=== PATIENT | female | born 1985 | race Caucasian/White ===

== ENCOUNTER 2017-11-29 15:55 | Emergency (ER) | payer SELFPAY ==
[2017-11-29 15:56] VITALS: BMI 46.5
[2017-11-29 16:02] VITALS: TEMP 98.4
--- NOTE | 2017-11-29 16:26 | C.PDOC ---
History Of Present Illness Patient is a 32 y/o female who presents to the ED with a complaint of abdominal cramping for the last 2 weeks. Patient notes positive test taken at home; denies any vaginal bleeding or discharge. Patient has 4 children at bedside. No other physical complaints at this time. Time Seen by Provider: 11/29/17 16:06 Chief Complaint (Nursing): Abdominal Pain History Per: Patient History/Exam Limitations: no limitations Onset/Duration Of Symptoms: Days (2 weeks) Current Symptoms Are (Timing): Still Present Quality Of Discomfort: Cramping Associated Symptoms: denies: Urinary Symptoms (negative vaginal bleeding) Recent travel outside of the [place]: No Past Medical History Reviewed: Historical Data, Nursing Documentation, Vital Signs Vital Signs: Last Vital Signs Temp 98.4 F 11/29/17 16:00 Pulse 68 11/29/17 16:00 Resp 18 11/29/17 16:00 BP 114/75 11/29/17 16:00 Pulse Ox 100 11/29/17 17:52 - Medical History PMH: No Chronic Diseases Surgical History: No Surg Hx - [facility] Procedures ARTIF RUPT MEMBRANES NEC (08/19/14) DELIVERY OF PRODUCTS OF CONCEPTION, EXTERNAL APPROACH (07/31/15) MANUAL ASSIST DELIV NEC (08/19/14) REPAIR FEMALE PERINEUM, EXTERNAL APPROACH (07/31/15) REPAIR OB LACERATION NEC (08/19/14) Family History: States: No Known Family Hx - Social History Hx Tobacco Use: No Hx Alcohol Use: No Hx Substance Use: No - Immunization History Hx Tetanus Toxoid Vaccination: No Hx Influenza Vaccination: No Hx Pneumococcal Vaccination: No Review Of Systems Gastrointestinal: Positive for: Abdominal Pain (cramping) Genitourinary: Negative for: Vaginal Discharge, Vaginal Bleeding Physical Exam - Physical Exam Appears: Well, Non-toxic, No Acute Distress Skin: Normal Color, Warm, Dry Head: Atraumatic, Normacephalic Oral Mucosa: Moist Chest: Symmetrical Cardiovascular: Rhythm Regular, No Murmur Respiratory: Normal Breath Sounds, No Rales, No Rhonchi, No Wheezing Gastrointestinal/Abdominal: Soft, No Tenderness, No Guarding, No Rebound Neurological/Psych: Oriented x3, Normal Speech, Normal Cognition ED Course And Treatment - Laboratory Results Result Diagrams: 11/29/17 16:26 11/29/17 16:26 O2 Sat by Pulse Oximetry: 100 Progress Note: Transvaginal US ordered. Disposition - Disposition Disposition Time: 19:00 Condition: STABLE Forms: [facility] (Guinean) - Clinical Impression Clinical Impression: Miscarriage, threatened, early - Scribe Statement The provider has reviewed the documentation as recorded by the Scribe (Oswald Wang) Celeste Mendez All medical record entries made by the Scribe were at my direction and personally dictated by me. I have reviewed the chart and agree that the record accurately reflects my personal performance of the history, physical exam, medical decision making, and the department course for this patient. I have also personally directed, reviewed, and agree with the discharge instructions and disposition. Physician Patient Turnover Patient Signed Over To: Cindy Reddy Handoff Comments: CARINE WHITE, DENICEO
[2017-11-29 16:29] LABS: BASO # 0.1 K/uL (0.0-0.2); BASO % 0.5 % (0.0-2.0); EOS # 0.1 K/uL (0.0-0.7); EOS % 1.1 % (0.0-4.0); HEMOGLOBIN 12.6 g/dL (11.0-16.0); LYMPH # 2.8 K/uL (1.0-4.3); LYMPH % 26.2 % (20.0-40.0); MEAN CORPUSCULAR HEMOGLOBIN 26.8 pg (27.0-31.0); MEAN CORPUSCULAR HGB CONC 33.1 g/dL (33.0-37.0); MEAN PLATELET VOLUME 8.5 fL (7.2-11.7); MONO # 0.7 K/uL (0.0-0.8); MONO % 6.2 % (0.0-10.0); NEUT # 7.2 K/uL (1.8-7.0); NRBC % 0.1 % (0.0-2.0); RBC 4.7 Mil/uL (3.80-5.20); RED CELL DISTRIBUTION WIDTH 13.8 % (11.5-14.5); WHITE BLOOD COUNT 10.9 K/uL (4.8-10.8)
[2017-11-29 16:30] LABS: MEAN CELL VOLUME 81.1 fL (81.0-99.0)
[2017-11-29 16:40] LABS: SQUAMOUS EPITHIAL 11 /hpf (0-5); URINE BILIRUBIN NEGATIVE (NEGATIVE); URINE BLOOD 2+ (NEGATIVE); URINE CLARITY Hazy (Clear); URINE COLOR Yellow (YELLOW); URINE GLUCOSE (UA) NORMAL (Normal); URINE LEUKOCYTE ESTERASE TRACE Leu/uL (Negative); URINE PROTEIN NEGATIVE (NEGATIVE)
[2017-11-29 16:41] LABS: ALT/SGPT 42 U/L (9-52); AST/SGOT 27 U/L (14-36); BLOOD UREA NITROGEN 10 mg/dL (7-17); CALCIUM 8.7 mg/dl (8.6-10.4); GFR AFRICAN-AMERICAN > 60; GFR NON-AFRICAN AMERICAN > 60
[2017-11-29 21:24] VITALS: BP 118/70; PULSE 78; RESP 20; O2SAT 98
--- NOTE | 2017-11-30 14:57 | US ---
PROCEDURE: Pelvic ultrasound dated 11/29/2017 HISTORY: Abdominal pain rule out ectopic . COMPARISON: No prior study available for comparison TECHNIQUE: Transabdominal and transvaginal sonographic evaluation of the pelvis performed. FINDINGS: The uterus is anteverted measuring approximately 11.0 x 6.4 x 6.6 cm. Cervix is closed measuring 3.2 cm. There is a living intrauterine gestation with measurements as follows: Gestational sac: MSD = 2.93 cm = 7 weeks 6 days Yolk sac: 3.4 mm pole: CRL = 6.9 mm = 5 weeks 4 days Heart motion: 139 BPM Average ultrasound age: 7 weeks 2 days 0 weeks 4 days NICK based on average ultrasound age is 07/16/2018 LMP = 10/08/2017 There is a small subchorionic hemorrhage which measures approximate 1.9 x 0.9 x 1.6 cm Right ovary measures approximately 2.7 x 2.1 x 2.8 cm right ovary exhibits arterial flow. There is a right ovarian cyst measuring 1.4 x 1.4 x 1.5 cm Left ovary measures approximately 5.5 x 4.3 x 5.0 cm. Left ovary exhibits arterial flow. There is a left ovarian cyst that measures approximately 3.5 x 3.6 x 4.0 cm. Free fluid is present in the cul de sac. IMPRESSION: Single living intrauterine gestation estimated at approximately 7 weeks 2 days 0 weeks 4 days. Heart rate document at 1:39 BPM. Additional measurements as above There is a small subchorionic hemorrhage present. Small amount of free fluid present within the cul de sac. Preliminary report provided by overnight radiology service
== END 2017-11-29 22:25 | disposition home or self-care (01) ==
LOC: C.ER 15:55
DX: O20.0 Threatened abortion (principal); Z3A.01 Less than 8 weeks gestation of pregnancy

== ENCOUNTER 2018-01-25 17:45 | Emergency (ER) | payer OTHER ==
[2018-01-25] MEDS ORDERED: Morphine 4 MG/ML VIAL ONE (18:08)
[2018-01-25 18:18] LABS: BASO % 0.3 % (0.0-2.0); EOS # 0.1 K/uL (0.0-0.7); EOS % 0.5 % (0.0-4.0); HEMOGLOBIN 12.3 g/dL (11.0-16.0); LYMPH # 2.1 K/uL (1.0-4.3); LYMPH % 17.1 % (20.0-40.0); MEAN CELL VOLUME 80.3 fL (81.0-99.0); MEAN CORPUSCULAR HEMOGLOBIN 26.9 pg (27.0-31.0); MEAN CORPUSCULAR HGB CONC 33.6 g/dL (33.0-37.0); MEAN PLATELET VOLUME 8.8 fL (7.2-11.7); MONO # 0.6 K/uL (0.0-0.8); MONO % 4.9 % (0.0-10.0); NEUT # 9.7 K/uL (1.8-7.0); NEUT % 77.2 % (50.0-75.0); RBC 4.56 Mil/uL (3.80-5.20); WHITE BLOOD COUNT 12.6 K/uL (4.8-10.8)
--- NOTE | 2018-01-25 18:27 | C.PDOC ---
History Of Present Illness 33 y/o female with PMHX of periumbilical hernia 2 years ago presents to ED for complaints of periumbilical pain associated with nausea and vomiting that began this morning. Patient is 3 months . Patient also reports that she is fasting for Ramadan. Time Seen by Provider: 01/25/18 17:50 Chief Complaint (Nursing): Abdominal Pain History Per: Patient History/Exam Limitations: no limitations Onset/Duration Of Symptoms: Hrs Current Symptoms Are (Timing): Still Present Location Of Pain/Discomfort: Periumbilical Radiation Of Pain To:: None Quality Of Discomfort: "Pain" Associated Symptoms: Nausea, Vomiting. denies: Fever, Chills, Diarrhea, Urinary Symptoms Exacerbating Factors: None Alleviating Factors: None Last Bowel Movement: Today Recent travel outside of the [place]: No Abnormal Vaginal Bleeding: No Past Medical History Reviewed: Historical Data, Nursing Documentation, Vital Signs Vital Signs: Last Vital Signs Temp 98.6 F 01/25/18 19:29 Pulse 74 01/25/18 19:29 Resp 16 01/25/18 19:29 BP 107/61 01/25/18 19:29 Pulse Ox 99 01/25/18 19:29 - Medical History PMH: No Chronic Diseases Surgical History: No Surg Hx Family History: States: No Known Family Hx - Social History Hx Alcohol Use: No Hx Substance Use: No - Immunization History Hx Tetanus Toxoid Vaccination: No Hx Influenza Vaccination: No Hx Pneumococcal Vaccination: No Review Of Systems Constitutional: Negative for: Fever, Chills Gastrointestinal: Positive for: Nausea, Vomiting, Abdominal Pain (periumbilical) . Negative for: Diarrhea, Constipation Skin: Negative for: Rash Neurological: Negative for: Weakness, Numbness Physical Exam - Physical Exam Appears: Non-toxic, No Acute Distress, Other (Obese) Skin: Normal Color, Warm, Dry Head: Atraumatic, Normacephalic Eye(s): bilateral: Normal Inspection, PERRL, EOMI Oral Mucosa: Moist Neck: Supple Chest: Symmetrical, No Tenderness Cardiovascular: Rhythm Regular, No Murmur Respiratory: Normal Breath Sounds, No Decreased Breath Sounds, No Rales, No Rhonchi, No Wheezing Gastrointestinal/Abdominal: Soft, Tenderness (exquisitely), Hernia (protruding paraumbilical hernia) Extremity: Normal ROM Neurological/Psych: Oriented x3, Normal Speech, Normal Cognition Gait: Steady ED Course And Treatment - Laboratory Results Result Diagrams: 01/25/18 18:13 01/25/18 18:13 O2 Sat by Pulse Oximetry: 100 (RA) Pulse Ox Interpretation: Normal Medical Decision Making Medical Decision Making: Ordered urinalysis and blood work. Administered Morphine and ER Ice pack. protruding umbilical hernia, now reduced by Dr. Boone with digital manipulation 3 months preg 6PM: -- Discussed with , surgery doctor. 6:20PM: -- Bedside digitally reduced hernia -- Patient tolerated procedure well Plan: -- 2 hour observation then discharge. On reevaluation patient had an ice pack placed over periumbilical area. Case was discussed with surgery environmental law professor and surgery residents who states patient is ok to be D/C. Nasogastric tube was removed and patient was D/C home. Umbilical hernia remains reduced on reevaluation prior to D/C. Disposition Doctor Will See Patient In The: Office Counseled Patient/Family Regarding: Studies Performed, Diagnosis - Disposition Referrals: Yonathan Boone MD [Staff Provider] - Disposition: HOME/ ROUTINE Disposition Time: 18:28 Condition: GOOD Additional Instructions: follow-up with Dr. Boone for elective repair of umbilical hernia. Instructions: Umbilical Hernia, Adult Forms: [facility] (Lao) - Clinical Impression Clinical Impression: Umbilical hernia - Scribe Statement The provider has reviewed the documentation as recorded by the Andreinaibjose Trent All medical record entries made by the Scribe were at my direction and personally dictated by me. I have reviewed the chart and agree that the record accurately reflects my personal performance of the history, physical exam, medical decision making, and the department course for this patient. I have also personally directed, reviewed, and agree with the discharge instructions and disposition.
[2018-01-25 18:31] LABS: ALB/GLOB RATIO 1.1 (1.0-2.1); ALBUMIN 3.9 g/dL (3.5-5.0); ALT/SGPT 31 U/L (9-52); AST/SGOT 25 U/L (14-36); BLOOD UREA NITROGEN 7 mg/dL (7-17); CALCIUM 9.1 mg/dl (8.6-10.4); GFR AFRICAN-AMERICAN > 60; GFR NON-AFRICAN AMERICAN > 60; LIPASE 42 U/L (23-300)
[2018-01-25 19:29] VITALS: BP 107/61; PULSE 74; TEMP 98.6
--- NOTE | 2018-01-25 20:03 | CP.PCM.CON ---
History of Present Illness - History of Present Illness History of Present Illness: Surgery- Dr. Boone CC: abd pain, umbilical hernia 33F currently 3 months w/ pmhx significant for umbilical hernia for > 2 years, presents to [facility] (formerly [facility]) with bo-umbilical pain around hernia site that started early this morning. Pain has been significant and intensified with no alleviating factors. Surgery was consulted for evaluation of the hernia. During encounter patient is Yi speaking. Initial HPI was provided ER attending at bedside. NGT was inserted with 50cc of gastric contents return. At bedside ice packs were placed and reduction of hernia was achieved. Associated nausea, vomiting. Denies fevers, chills, diarrhea, changes in urinary habits PMH: stated above PSH: Denies ALL: NKDA Socialhx: denies etoh, tobacco, recreational drug use FH: non-contributory 12 pt ROS conducted, negative otherwise noted above Review of Systems - Review of Systems All systems: reviewed and no additional remarkable complaints except - Constitutional Constitutional: As Per HPI Past Patient History - Past Social History Smoking Status: Never Smoked - PSYCHIATRIC Hx Substance Use: No - SURGICAL HISTORY Hx Surgeries: No - ANESTHESIA Hx Anesthesia: No Hx Anesthesia Reactions: No Meds Allergies/Adverse Reactions: Allergies Allergy/AdvReac Type Severity Reaction Status Date / Time No Known Allergies Allergy Unverified 01/25/18 17:52 Physical Exam - Constitutional Appears: Non-toxic, No Acute Distress - Head Exam Head Exam: ATRAUMATIC - Eye Exam Eye Exam: EOMI - ENT Exam ENT Exam: Mucous Membranes Moist - Respiratory Exam Respiratory Exam: Accessory Muscle Use, Respiratory Distress, NORMAL BREATHING PATTERN - Cardiovascular Exam Cardiovascular Exam: +S1, +S2. absent: Bradycardia, Tachycardia - GI/Abdominal Exam GI & Abdominal Exam: Guarding, Hernia, Soft, Tenderness. absent: Distended, Firm, Rebound, Rigid Additional comments: patient combative during abd exam. Hernia was able to reduce after ice packs and manipulation - Extremities Exam Extremities exam: Positive for: normal inspection. Negative for: calf tenderness - Neurological Exam Neurological exam: Alert, Oriented x3 - Psychiatric Exam Psychiatric exam: Normal Affect - Skin Skin Exam: Intact, Warm Results - Vital Signs Recent Vital Signs: Last Vital Signs Temp 98.6 F 01/25/18 19:29 Pulse 74 01/25/18 19:29 Resp 16 01/25/18 19:29 BP 107/61 01/25/18 19:29 Pulse Ox 99 01/25/18 19:29 - Labs Result Diagrams: 01/25/18 18:13 01/25/18 18:13 Labs: Laboratory Results - last 24 hr 01/25/18 01/25/18 01/25/18 18:13 18:13 18:13 WBC 12.6 H RBC 4.56 Hgb 12.3 Hct 36.6 MCV 80.3 L MCH 26.9 L MCHC 33.6 RDW 14.0 Plt Count 324 MPV 8.8 Neut % (Auto) 77.2 H Lymph % (Auto) 17.1 L Charlton % (Auto) 4.9 Eos % (Auto) 0.5 Baso % (Auto) 0.3 Neut # (Auto) 9.7 H Lymph # (Auto) 2.1 Charlton # (Auto) 0.6 Eos # (Auto) 0.1 Baso # (Auto) 0.0 Sodium 138 Potassium 3.8 Chloride 108 H Carbon Dioxide 18 L Anion Gap 17 BUN 7 Creatinine 0.5 L Est GFR ( Amer) > 60 Est GFR (Non-Af Amer) > 60 Random Glucose 121 H Calcium 9.1 Total Bilirubin 0.7 AST 25 ALT 31 Alkaline Phosphatase 87 Total Protein 7.7 Albumin 3.9 Globulin 3.8 Albumin/Globulin Ratio 1.1 Lipase 42 Beta HCG, Quant 43681.00 Assessment & Plan - Assessment and Plan (Free Text) Assessment: 33 w/ umbilical hernia, reduced at bedside Plan: - umbilical hernia reduced at bedside by Dr. Boone - pressure dressing applied - serial abd exams - pt abd is soft - cleared for diet - OK to D/C home and follow up as an outpatient w/ Dr. Boone in Clinic for elective repair - case discussed w/ [facility]one [facility] PGY1
[2018-01-25 20:24] VITALS: O2SAT 100
[2018-01-25 20:25] VITALS: RESP 18
== END 2018-01-25 20:17 | disposition home or self-care (01) ==
LOC: MERGE 17:45 → C.ER 17:45
DX: O26.891 Other specified pregnancy related conditions, first trimester (principal); K42.9 Umbilical hernia without obstruction or gangrene; Z3A.12 12 weeks gestation of pregnancy
CPT/HCPCS: 80053; 83690; 84702; 85025; 96374; 99285; J2270

== ENCOUNTER 2018-02-03 23:01 | Emergency (ER) | payer OTHER ==
[2018-02-03 23:01] VITALS: BMI 46.5
[2018-02-03 23:15] VITALS: BP 107/60; TEMP 98.5; O2SAT 99
[2018-02-03] MEDS ORDERED: Sodium Chloride 0.9% 1,000 ML IV ONE (23:59)
--- NOTE | 2018-02-03 23:59 | C.PDOC ---
History Of Present Illness Patient presents to the ER with a complaint of abdominal pain, associated with some nausea and vomiting. Patient notes she has a Hx of umbilical hernia and is 4 months . Denies fever or chills. Time Seen by Provider: 02/03/18 23:59 Chief Complaint (Nursing): Abdominal Pain History Per: Patient History/Exam Limitations: no limitations Onset/Duration Of Symptoms: Hrs Current Symptoms Are (Timing): Still Present Severity: Moderate Pain Scale Rating Of: 4 Location Of Pain/Discomfort: Other (Umbilical) Radiation Of Pain To:: None Quality Of Discomfort: Unable To Describe Associated Symptoms: Nausea, Vomiting. denies: Fever, Chills Exacerbating Factors: None Alleviating Factors: None Recent travel outside of the [place]: No Abnormal Vaginal Bleeding: No Past Medical History Reviewed: Historical Data, Nursing Documentation, Vital Signs Vital Signs: Last Vital Signs Temp 98.5 F 02/03/18 23:11 Pulse 66 02/04/18 04:01 Resp 18 02/04/18 04:01 BP 107/60 02/03/18 23:11 Pulse Ox 99 02/04/18 02:17 - [facility] Procedures ARTIF RUPT MEMBRANES NEC (08/19/14) DELIVERY OF PRODUCTS OF CONCEPTION, EXTERNAL APPROACH (07/31/15) MANUAL ASSIST DELIV NEC (08/19/14) REPAIR FEMALE PERINEUM, EXTERNAL APPROACH (07/31/15) REPAIR OB LACERATION NEC (08/19/14) Family History: States: No Known Family Hx - Social History Hx Tobacco Use: No Hx Alcohol Use: No Hx Substance Use: No - Immunization History Hx Tetanus Toxoid Vaccination: No Hx Influenza Vaccination: No Hx Pneumococcal Vaccination: No Review Of Systems Constitutional: Negative for: Fever, Chills Cardiovascular: Negative for: Chest Pain, Palpitations Respiratory: Negative for: Cough, Shortness of Breath Gastrointestinal: Positive for: Nausea, Vomiting, Abdominal Pain Genitourinary: Negative for: Vaginal Bleeding Physical Exam - Physical Exam Appears: Non-toxic Skin: Warm, Dry Head: Normacephalic Oral Mucosa: Moist Chest: Symmetrical, No Tenderness Cardiovascular: Rhythm Regular Respiratory: No Rales, No Rhonchi, No Wheezing Gastrointestinal/Abdominal: Soft, No Guarding, No Rebound, Hernia (Moderate size , tender to palpation), Other (Gravid) Neurological/Psych: Oriented x3 ED Course And Treatment - Laboratory Results Result Diagrams: 02/04/18 00:12 02/04/18 00:12 O2 Sat by Pulse Oximetry: 99 (room air) Pulse Ox Interpretation: Normal Progress Note: Blood work and urinalysis ordered. Morphine, zofran, and IV fluids administered. 2:16 AM umbilical hernia reduced. No more pain. Reevaluation Time: 04:33 Reassessment Condition: Improved Disposition Counseled Patient/Family Regarding: Studies Performed, Diagnosis, Need For Followup - Disposition Referrals: [facility] [Outside] [facility] [Outside] Ethan Dueñas MD [Staff Provider] - Disposition: HOME/ ROUTINE Disposition Time: 23:59 Condition: FAIR Instructions: Abdominal Hernia (DC), - The Fifth Month Forms: [employer] (Romanian) - Clinical Impression Clinical Impression: Abdominal pain, Umbilical hernia, - Scribe Statement The provider has reviewed the documentation as recorded by the Scribe Paddy Ritchie All medical record entries made by the Scribe were at my direction and personally dictated by me. I have reviewed the chart and agree that the record accurately reflects my personal performance of the history, physical exam, medical decision making, and the department course for this patient. I have also personally directed, reviewed, and agree with the discharge instructions and disposition.
[2018-02-04] MEDS ORDERED: Morphine 4 MG/ML VIAL ONE (00:21)
[2018-02-04 00:22] LABS: BASO % 0.2 % (0.0-2.0); EOS % 0.2 % (0.0-4.0); HEMOGLOBIN 12.5 g/dL (11.0-16.0); LYMPH # 1.3 K/uL (1.0-4.3); LYMPH % 10.1 % (20.0-40.0); MEAN CELL VOLUME 80.5 fL (81.0-99.0); MEAN CORPUSCULAR HGB CONC 33.5 g/dL (33.0-37.0); MEAN PLATELET VOLUME 9.2 fL (7.2-11.7); MONO # 0.3 K/uL (0.0-0.8); MONO % 2.6 % (0.0-10.0); NEUT % 86.9 % (50.0-75.0); RBC 4.64 Mil/uL (3.80-5.20); RED CELL DISTRIBUTION WIDTH 14.2 % (11.5-14.5); WHITE BLOOD COUNT 12.7 K/uL (4.8-10.8)
[2018-02-04 00:26] LABS: INR 1.1; PROTHROMBIN TIME 11.6 SECONDS (9.7-12.2)
[2018-02-04 00:40] LABS: ALB/GLOB RATIO 1.1 (1.0-2.1); ALBUMIN 4.3 g/dL (3.5-5.0); ALT/SGPT 13 U/L (9-52); AST/SGOT 15 U/L (14-36); BLOOD UREA NITROGEN 4 mg/dL (7-17); CALCIUM 9.2 mg/dl (8.6-10.4); GFR AFRICAN-AMERICAN > 60; GFR NON-AFRICAN AMERICAN > 60
[2018-02-04] MEDS ORDERED: Sodium Chloride 0.9% 1,000 ML IV ONE (02:17)
[2018-02-04 04:02] VITALS: PULSE 66; RESP 18
--- NOTE | 2018-02-04 04:12 | US ---
EXAM: US After First Trimester, Transabdominal CLINICAL HISTORY: 33 years old, female; Pain; complicated by abdominal or pelvic pain; Lower; Second trimester; Gestational age or lmp: 10/08/17; ; Additional info: Abd pain, hcg 50178, no pre care TECHNIQUE: Real-time transabdominal obstetrical ultrasound of the maternal pelvis and a second or third trimester with image documentation. COMPARISON: No relevant prior studies available. FINDINGS: Fetus: Single live intrauterine gestation. Heart rate: heart rate of 132 beats per minute. Presentation: Variable. Placenta: Posterior. No placenta previa or abruption. Amniotic fluid: Normal. Anatomy: No gross anomaly is appreciated. BIOMETRICS Gestational age: Estimated gestational age of 17 weeks 1 day by measurements. NICK: 07/14/2018 by ultrasound. EFW: Estimated weight of 177 g. BPD: 3.7 cm, correlating with 17 weeks 3 days. HC: 13.9 cm, correlating with 17 weeks 2 days. AC: 11.3 cm, correlating with 17 weeks 1 day. FL: 2.2 cm, correlating with 16 weeks 5 days. MATERNAL: Uterus: Unremarkable. No myometrial mass. Cervix: No cervical dilatation or effacement. Adnexa: RIGHT ovary: Not visualized. LEFT ovary: 2.9 x 2.5 x 2.2 cm simple cyst. Free fluid: No significant free fluid. IMPRESSION: 1. Single live intrauterine gestation. 2. Incidental/non-acute findings are described above.
== END 2018-02-04 05:33 | disposition home or self-care (01) ==
LOC: C.ER 23:01
DX: O26.892 Other specified pregnancy related conditions, second trimester (principal); Z3A.16 16 weeks gestation of pregnancy; K42.9 Umbilical hernia without obstruction or gangrene; R10.2 Pelvic and perineal pain
CPT/HCPCS: 76815; 80053; 84702; 85025; 85610; 85730; 86850; 86900; 96361; 96374; 96375; 99284; J2270; J2405; J7030

== ENCOUNTER 2018-02-08 21:37 | Emergency (ER) | payer OTHER ==
[2018-02-08 21:37] VITALS: BMI 46.5
[2018-02-08 21:45] VITALS: RESP 20; O2SAT 99
[2018-02-08] MEDS ORDERED: Morphine 4 MG/ML VIAL ONE (22:11)
[2018-02-08] MEDS ORDERED: Sodium Chloride 0.9% 1,000 ML ONE ×2 (22:12→23:14)
[2018-02-08] MEDS ORDERED: Sodium Chloride 0.9% 1,000 ML IV SCH (22:15)
[2018-02-08] MEDS ORDERED: Sodium Chloride 0.9% 1,000 ML IV ONE (22:17)
--- NOTE | 2018-02-08 22:22 | C.PDOC ---
History Of Present Illness 33 year old female with a Hx of umbilical hernia presents to the ER with a complaint of umbilical pain. Patient states the pain started tonight after protrusion of hernia. Denies nausea or vomiting. Chief Complaint (Nursing): Abdominal Pain History Per: Patient History/Exam Limitations: no limitations Onset/Duration Of Symptoms: Hrs, Sudden Onset Current Symptoms Are (Timing): Still Present Location Of Pain/Discomfort: Other (Umbilical) Radiation Of Pain To:: None Quality Of Discomfort: Unable To Describe Associated Symptoms: denies: Nausea, Vomiting Exacerbating Factors: None Alleviating Factors: None Recent travel outside of the [place]: No Abnormal Vaginal Bleeding: No Past Medical History Reviewed: Historical Data, Nursing Documentation, Vital Signs Vital Signs: Last Vital Signs Temp 98.8 F 02/09/18 00:46 Pulse 64 02/09/18 00:46 Resp 20 02/09/18 00:46 BP 101/65 02/09/18 00:46 Pulse Ox 99 02/09/18 19:56 Surgical History: No Surg Hx - [facility] Procedures ARTIF RUPT MEMBRANES NEC (08/19/14) DELIVERY OF PRODUCTS OF CONCEPTION, EXTERNAL APPROACH (07/31/15) MANUAL ASSIST DELIV NEC (08/19/14) REPAIR FEMALE PERINEUM, EXTERNAL APPROACH (07/31/15) REPAIR OB LACERATION NEC (08/19/14) Family History: States: Unknown Family Hx - Social History Hx Tobacco Use: No Hx Alcohol Use: No Hx Substance Use: No - Immunization History Hx Tetanus Toxoid Vaccination: No Hx Influenza Vaccination: No Hx Pneumococcal Vaccination: No Review Of Systems Constitutional: Negative for: Fever, Chills Cardiovascular: Negative for: Chest Pain, Palpitations Respiratory: Negative for: Cough, Shortness of Breath Gastrointestinal: Positive for: Abdominal Pain. Negative for: Nausea, Vomiting Physical Exam - Physical Exam Appears: Non-toxic Skin: Normal Color, Warm, Dry Head: Atraumatic, Normacephalic Eye(s): bilateral: Normal Inspection Oral Mucosa: Moist Chest: Symmetrical, No Tenderness Cardiovascular: Rhythm Regular Respiratory: Normal Breath Sounds, No Rales, No Rhonchi, No Wheezing Gastrointestinal/Abdominal: Other (Hard mass to umbilical area, tender to touch) Neurological/Psych: Oriented x3, Normal Speech ED Course And Treatment - Laboratory Results Result Diagrams: 02/08/18 22:22 02/08/18 22:22 O2 Sat by Pulse Oximetry: 99 (Room air) Pulse Ox Interpretation: Normal Progress Note: Blood work and urinalysis ordered. Morphine, zofran, and IV fluids administered. - Physician Consult Information Time Consulting Physician Contacted: 22:40 (Dr. Rylee Boone contcted) Outcome Of Conversation: To call surgical appliances salesperson for evaluation. Disposition Discussed With : Yonathan Boone Counseled Patient/Family Regarding: Diagnosis - Disposition Referrals: [facility] [Outside] Yonathan Boone MD [Staff Provider] - Disposition: HOME/ ROUTINE Disposition Time: 00:30 Condition: IMPROVED Instructions: Medications and , Umbilical Hernia, Adult Forms: [facility] (Divehi) - POA Present On Arrival: None - Clinical Impression Clinical Impression: Umbilical hernia, - Scribe Statement The provider has reviewed the documentation as recorded by the Scribe Paddy Ritchie All medical record entries made by the Scribe were at my direction and personally dictated by me. I have reviewed the chart and agree that the record accurately reflects my personal performance of the history, physical exam, medical decision making, and the department course for this patient. I have also personally directed, reviewed, and agree with the discharge instructions and disposition.
[2018-02-08 22:25] LABS: BASO % 0.3 % (0.0-2.0); EOS # 0.1 K/uL (0.0-0.7); EOS % 0.8 % (0.0-4.0); LYMPH # 2.4 K/uL (1.0-4.3); LYMPH % 18.6 % (20.0-40.0); MEAN CELL VOLUME 81.3 fL (81.0-99.0); MEAN CORPUSCULAR HEMOGLOBIN 26.9 pg (27.0-31.0); MEAN CORPUSCULAR HGB CONC 33.1 g/dL (33.0-37.0); MEAN PLATELET VOLUME 9.1 fL (7.2-11.7); MONO # 0.6 K/uL (0.0-0.8); MONO % 4.4 % (0.0-10.0); NEUT # 9.7 K/uL (1.8-7.0); NEUT % 75.9 % (50.0-75.0); RBC 4.46 Mil/uL (3.80-5.20); RED CELL DISTRIBUTION WIDTH 14.3 % (11.5-14.5); WHITE BLOOD COUNT 12.7 K/uL (4.8-10.8)
[2018-02-08 22:31] LABS: INR 1.1; PROTHROMBIN TIME 11.8 SECONDS (9.7-12.2)
[2018-02-08 22:46] LABS: ALT/SGPT 16 U/L (9-52); AST/SGOT 14 U/L (14-36); BLOOD UREA NITROGEN 6 mg/dL (7-17); CALCIUM 9.2 mg/dl (8.6-10.4); GFR AFRICAN-AMERICAN > 60; GFR NON-AFRICAN AMERICAN > 60
[2018-02-08] MEDS ORDERED: HYDROmorphone 0.5 mg/0.5 ml ISec IVP PRN (23:09)
[2018-02-09 00:48] VITALS: BP 101/65; PULSE 64; TEMP 98.8
== END 2018-02-09 00:48 | disposition home or self-care (01) ==
LOC: C.ER 21:37
DX: O26.899 Other specified pregnancy related conditions, unspecified trimester (principal); K42.9 Umbilical hernia without obstruction or gangrene; Z3A.00 Weeks of gestation of pregnancy not specified
CPT/HCPCS: 80053; 85025; 85610; 85730; 96361; 96374; 96375; 99285; J1170; J2270; J2405; J7030

== ENCOUNTER 2018-06-08 06:06 | Emergency (ER) | payer MEDICAID, OTHER ==
--- NOTE | 2018-06-08 07:02 | OBHP ---
Datetime: 06/08/2018 06:57 IP Adm Impression: , intrauterine IP Chief Complaint Other: heartburn Admit Comment, IP Provider: @ 30+ wks with sudden chest discofort at 3am that resolved while being here. pt dnies any ctx, lof, vb, +FM. tprpoerts prental care with Dr Baljeet tabares last vis it over month ago and reports due to an insurance change has not seen a doctor. OB: x 3 FT reprots uncompliated TELEVISION SERVICER: Dneies PMH:denies PSH: denies FHX: non cotriboutry MEDS: pnv NKDA SHX: negative eoth/tobacco.drugs A/P @ 30.2 wks GA with chest discomfort currently stable -cbc -ekg -bicitra -ocnt toco and efm Pelvic Type - PN: Adequate Extremities - PN: Normal Abdomen - PN: Normal Back - PN: Normal Breast - PN: Not Done Lungs - PN: Normal Heart - PN: Normal Thyroid - PN: Normal Neurologic - PN: Normal HEENT - PN: Normal General - PN: Normal FHR - Baseline A Provider: 130 Membranes, Provider: Intact Gestation - Est Wks by US: 30.2 EGA AdmitDate IP: 30.2 Vital Signs Provider: Reviewed; Within Normal Limits IP Chief Complaint: Other NICHD Variability Prov Fetus A: Moderate 6-25bpm FHR Category Provider Fetus A: Category I NICHD Decel Fetus A IP Provider: None Dilatation, Provider: 0 Effacement, Provider: 0 Genitourinary Exam: Normal DTRs - PN: Normal
[2018-06-08] MEDS ORDERED: Sodium Citrate/Citric Acid 15 ml Sol PO STA (07:17)
[2018-06-08 08:50] LABS: BASO % 0.4 % (0.0-2.0); EOS % 0.2 % (0.0-4.0); LYMPH # 1.7 K/uL (1.0-4.3); LYMPH % 15.5 % (20.0-40.0); MEAN CORPUSCULAR HEMOGLOBIN 25.9 pg (27.0-31.0); MEAN CORPUSCULAR HGB CONC 33.3 g/dL (33.0-37.0); MEAN PLATELET VOLUME 8.2 fL (7.2-11.7); MONO # 0.7 K/uL (0.0-0.8); NEUT # 8.3 K/uL (1.8-7.0); NEUT % 76.9 % (50.0-75.0); RBC 3.78 Mil/uL (3.80-5.20); RED CELL DISTRIBUTION WIDTH 14.6 % (11.5-14.5); WHITE BLOOD COUNT 10.7 K/uL (4.8-10.8)
[2018-06-08 08:53] LABS: HEMOGLOBIN 9.8 g/dL (11.0-16.0); MEAN CELL VOLUME 77.9 fL (81.0-99.0)
[2018-06-08 09:01] LABS: ALBUMIN 3.2 g/dL (3.5-5.0); BLOOD UREA NITROGEN 8 mg/dL (7-17); CALCIUM 8.1 mg/dl (8.6-10.4); GFR NON-AFRICAN AMERICAN > 60; SQUAMOUS EPITHIAL 22 /hpf (0-5); URIC ACID 3.8 mg/dL (2.2-7.5); URINE BACTERIA FEW (<OCC); URINE BILIRUBIN NEGATIVE (NEGATIVE); URINE BLOOD 1+ (NEGATIVE); URINE CLARITY Hazy (Clear); URINE COLOR Yellow (YELLOW); URINE GLUCOSE (UA) NORMAL (Normal); URINE LEUKOCYTE ESTERASE 3+ Leu/uL (Negative); URINE PROTEIN 1+ mg/dL (NEGATIVE)
[2018-06-08 09:02] LABS: ALT/SGPT 17 U/L (9-52); AST/SGOT 35 U/L (14-36); BILIRUBIN,DIRECT 0.5 mg/dL (0.0-0.4)
[2018-06-08 09:06] LABS: PROTHROMBIN TIME 11.2 SECONDS (9.7-12.2)
[2018-06-08] MEDS ORDERED: Lactated Ringer's 500 ML IV ONE (09:13)
--- NOTE | 2018-06-08 12:28 | US ---
Date of service: 06/08/2018 PROCEDURE: OB Pelvic Ultrasound HISTORY: 30 weeks, vaginal bleeding, scant care LMP: 10/15/2017 COMPARISON: None available. FINDINGS: UTERUS: Gestational sac: Intrauterine fetus in cephalic presentation. Heart rate: 132 bpm. BPD: 8.34 cm corresponding to 33 weeks and 4 days of gestational age. HC: 30.67 cm corresponding to 34 weeks and 1 day of gestational age. AC: 28.84 cm corresponding to 32 weeks and 6 days of gestational age. FL: 6.36 cm corresponding to 32 weeks and 6 days of gestational age. age (Ultrasound estimated): 33 weeks and 3 days Luciana-gestational hemorrhage: None. Date of delivery (Ultrasound estimated) : 07/24/2018 Placenta is along the right lateral wall. CERVIX: Measures 3.16 cm. Long and closed. No cervical abnormality seen. RIGHT OVARY: Not visualized. LEFT OVARY: Not visualized. FREE FLUID: None. OTHER FINDINGS: None. IMPRESSION: Single live intrauterine fetus in cephalic presentation with mean gestational age of 33 weeks and 3 days. Cervix is closed. There is along the right lateral wall. The estimated date of delivery by ultrasound is 07/24/2018. The ultrasound dates correspond with the clinical dates. Please note this is a limited OB ultrasound performed on an emergent basis. Follow-up is advised.
--- NOTE | 2018-06-08 19:58 | OBDCSUM ---
Datetime: 06/08/2018 13:30 Discharged to, Provider: Home Follow up at, Provider: OBGYN Disch Instr Activity: Normal activity Disch Instr Diet: Regular Discharge Instructions, Provider: Routine instructions given Discharge Time: 06/08/2018 12:30 Follow up in weeks, Provider: NICOLA Disch Referrals: None Contraception discussed, Prov: Yes Disch Activity Restrictions: No exercising; No driving; No sexual activity; Nothing in vagina - Inte rcourse, tampons, douche Discharge Comment, Provider: Chest pain and Epigastric pain ressolved completely EKG NSR Urine with Dehydration and admits to drinking little to no water NST Reactive No contractions SVE closed and long US c/w Dates and Placenta not previa or low Pt was instructed to increase po water intake and to f/up with a doctor for care Dr. Tavarez had seen pt earlier and had given her her'office address and encouraged to f/up. D/C home in S_S condition Discharge Diagnosis Prov Other: Chest and epigastric pain Dehydration Scanty PNC Contraception after Delivery: Undecided Datetime: 06/08/2018 11:55 Discharged to, Provider: Home Follow up at, Provider: dr tavarez Disch Instr Activity: Normal activity; May Shower Disch Instr Diet: Regular Discharge Time: 06/08/2018 12:04 Follow up in weeks, Provider: one week Disch Referrals: None
[2018-06-08 21:06] VITALS: BP 128/63; PULSE 75; RESP 18; TEMP 98; O2SAT 100
--- NOTE | 2018-06-10 08:17 | CARD ---
APPROVED REPORT Date of service: 06/08/2018 EKG Measurement Heart [id number] NV 148P22 [id number] <Conclusion> Normal sinus rhythm Normal ECG
== END 2018-06-08 12:20 | disposition home or self-care (01) ==
LOC: C.EROB 06:06
DX: O26.893 Other specified pregnancy related conditions, third trimester (principal); R07.89 Other chest pain; Z3A.30 30 weeks gestation of pregnancy
CPT/HCPCS: 76815; 80048; 80076; 81001; 83615; 84550; 85025; 85384; 85610; 85730; 93005; 99283; J7120

== ENCOUNTER 2018-07-07 22:10 | Emergency (ER) | payer MEDICAID ==
[2018-07-07 22:39] VITALS: BMI 36.0
[2018-07-07] MEDS ORDERED: Lactated Ringer's 1,000 ML IV SCH (23:45)
[2018-07-07] MEDS ORDERED: Nalbuphine HCL 10 mg/ml Ampule IVP ONE (23:46)
[2018-07-08] MEDS ORDERED: Nalbuphine HCL 10 mg/ml Ampule ONE (01:06)
--- NOTE | 2018-07-08 01:36 | OBHP ---
Datetime: 07/07/2018 23:10 IP Adm Impression: Term, intrauterine ; No Active Labor; Intact Membranes IP Admit Plan: Observation/Evaluation Admit Comment, IP Provider: HENRY ID [id number]. Patient seen and evaluated 07/07/18, approx 2300 hours 34 y.o. , LMP 10/11/17, NICK 07/18/18, EGA 38w 3d confirmed by sono 02/04/18 at 17w 1d, c/o Ct x, onset 1900 hours, then "constant" now, since on L_D, intermittent.. (+) AFM; denies LOF, VB. Pre rhea care: Dr. Vidales; last seen 1 week ago. Course noted for repair of umbilical hernia "in my 5th month". P Ob: x 3: 2012, male, 2.75 Kg, [place]. 2013, female, approx 3 Kg and 2014, male, appro x 3 Kg. both at [facility]. 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 Denies h/o STIs, abnormal Pap, myomata or ovarian cysts. PMH: denies PSH: 2018, umbilical hernia repair NKDA Meds: PNV Soc Hx: denies tobacco, illicit drug or EtOH use. x 7 years. Homemaker. Fam Hx: Mother alive 54 y.o. no med issues. Father - renal disease; age unknown P.E.: as above. Obese, in moderate discomfort during bouts of pain. Abdomen palpated during these episodes - soft. Awake, alert, oriented to time, person and place. Pleasant and cooperative. Assessment: 33 y.o. P3, 38w 3d, not in labor; prolonged latent phase of labor (Patient states on 06/16/18: was seen in E.D. and told to be 3 cm. Also, at last cervical exm was performed - t old to be 3 cm). Category 1 tracing. Will perform therapeutic rest: this was explained to patient a t length, if progresses, will admit for delivery. If no cervical change is made, possible discharge h ome. Patient expresesd an understanidng and agrees. Category 1 tracing Plan: 1) Observe 2) Nubain 10 mg IVP x 1 3) IVFs - LR at 125 mL/hour 4) Re-examne in 4 hours. Pelvic Type - PN: Adequate Extremities - PN: Normal Abdomen - PN: Normal Back - PN: Normal Breast - PN: Not Done Lungs - PN: Normal Heart - PN: Normal Thyroid - PN: Not Done Neurologic - PN: Normal HEENT - PN: Normal Presentation-Admit: Vertex FHR - Baseline A Provider: 125 Contraction Comments Provider: irregular Comments, ACOG Physical Exam: Abdomen: Obese. Gravid. Soft. nontender. (during apparaent contraction , abdomen palpated - soft) All other systems reviewed and arenegative Gestation - Est Wks by US: 38w 3d EGA AdmitDate IP: 38.2 IP Chief Complaint: Maternal discomfort NICHD Variability Prov Fetus A: Moderate 6-25bpm NICHD Accel Fetus A IP Provider: 15X15 FHR Category Provider Fetus A: Category I NICHD Decel Fetus A IP Provider: None Dilatation, Provider: 3 Effacement, Provider: 40 Station, Provider: -3 Genitourinary Exam: Normal DTRs - PN: Normal
--- NOTE | 2018-07-08 06:53 | OBHP ---
Datetime: 07/08/2018 06:39 Admit Comment, IP Provider: Patient received in LDR#1; just awakening. Indicates that pain is improv ed. (per R.N., patient the past 4 hours) Cervical exam: unchanged. Assessment: 34 y.o. P3, 38w 3d, not in labor. Category 1 tracing. Clinically stable. Plan: 1) Discharge patient home 2) Reviewed S/S labor 3) Keep next scheduled appointment FHR - Baseline A Provider: 115 Contraction Comments Provider: irregular Gestation - Est Wks by US: 38w 3d Vital Signs Provider: Reviewed; Within Normal Limits NICHD Variability Prov Fetus A: Moderate 6-25bpm NICHD Accel Fetus A IP Provider: 15X15 FHR Category Provider Fetus A: Category I NICHD Decel Fetus A IP Provider: None Dilatation, Provider: 3 Effacement, Provider: 40 Station, Provider: -3
== END 2018-07-08 08:00 | disposition home or self-care (01) ==
LOC: C.EROB 22:10
DX: O47.1 False labor at or after 37 completed weeks of gestation (principal); Z3A.38 38 weeks gestation of pregnancy
CPT/HCPCS: 99283; J7120

== ENCOUNTER 2018-08-08 12:37 | Emergency (ER) | payer MEDICAID ==
[2018-08-08 12:37] VITALS: BMI 36.0
--- NOTE | 2018-08-08 12:55 | C.PDOC ---
History Of Present Illness 33 y/o female pt s/p post- 3 weeks presents to the ER complaining of epigastric pain associated with vomiting and constipation. Pain scale is 10/10. Pt reports she had multiple episodes of vomiting and the last was at 11 am this morning. Pt was told the vomiting was normal due to the baby pressure, but is now concerned since she already gave . Pt denies hematemesis, fever, chills, nausea, sweat, dysuria, foul smelling urine, headache and SOB. Time Seen by Provider: 08/08/18 12:48 Chief Complaint (Nursing): Abdominal Pain History Per: Patient History/Exam Limitations: no limitations Onset/Duration Of Symptoms: Days Current Symptoms Are (Timing): Still Present Location Of Pain/Discomfort: Epigastric Past Medical History Reviewed: Historical Data, Nursing Documentation, Vital Signs Vital Signs: Last Vital Signs Temp 97.7 F 08/08/18 12:45 Pulse 55 L 08/08/18 12:45 Resp 18 08/08/18 12:45 BP 134/80 08/08/18 12:45 Pulse Ox 100 08/08/18 12:45 - [facility] Procedures ARTIF RUPT MEMBRANES NEC (08/19/14) DELIVERY OF PRODUCTS OF CONCEPTION, EXTERNAL APPROACH (07/31/15) MANUAL ASSIST DELIV NEC (08/19/14) REPAIR FEMALE PERINEUM, EXTERNAL APPROACH (07/31/15) REPAIR OB LACERATION NEC (08/19/14) Family History: States: Unknown Family Hx - Social History Hx Tobacco Use: No Hx Alcohol Use: No Hx Substance Use: No - Immunization History Hx Tetanus Toxoid Vaccination: No Hx Influenza Vaccination: No Hx Pneumococcal Vaccination: No Review Of Systems Except As Marked, All Systems Reviewed And Found Negative. Constitutional: Negative for: Fever, Chills, Sweats Respiratory: Negative for: Shortness of Breath Gastrointestinal: Positive for: Vomiting, Abdominal Pain (epigastric pain ), Constipation. Negative for: Nausea, Hematemesis Genitourinary: Negative for: Dysuria, Other (foul-smelling urine ) Neurological: Negative for: Headache Physical Exam - Physical Exam Appears: Non-toxic, No Acute Distress Skin: Warm, Dry Cardiovascular: Rhythm Regular Respiratory: Normal Breath Sounds Gastrointestinal/Abdominal: Soft, Tenderness (epigastric and RUQ), No Distenti on, No Guarding, No Rebound, Other (obese) ED Course And Treatment - Laboratory Results Result Diagrams: 08/08/18 13:27 08/08/18 13:27 O2 Sat by Pulse Oximetry: 100 (RA) Pulse Ox Interpretation: Normal - Other Rad abdomen X-Ray: Read By Radiologist Interpretation: Accession No. : [id number]. Patient Name / ID : FATMATA VILLALTA / [id number]. Exam Date : 08/08/2018 13:48:53 ( Approved ). Study Comment : Sex / Age : F / 33Y. Creator : Erlinda Kenny MD. Dictator : Erlinda Kenny MD. Computer System Validation Specialist : Area Coordinator : Erlinda Kenny MD. Approver2 : Report Date : 08/08/2018 14:45:24. My Comment : . Date of service: 08/08/2018. HISTORY: abd pain. COMPARISON: None available. FINDINGS: BOWEL: There is moderate amount of stool in the ascending colon. There are gas-filled small bowel loops in the left abdomen. No evidence for bowel obstruction. BONES: Normal. OTHER FINDINGS: None. IMP RESSION: Constipation. No evidence for bowel obstruction. - CT Scan/US Abdomen US Other Rad Studies (CT/US): Read By Radiologist, Radiology Report Reviewed CT/US Interpretation: Accession No. : [id number]. Patient Name / ID : FATMATA VILLALTA / [id number]. Exam Date : 08/08/2018 14:05:34 ( Approved ). Study Commen t : Sex / Age : F / 33Y. Creator : Erlinda Kenny MD. Dictator : Erlinda Kenny MD. Computer System Validation Specialist : Area Coordinator : Erlinda Kenny MD. Approver2 : Report Date : 08/08/2018 14:49:17. My Comment : . Date of service: 08/08/2018. HISTORY: abd pain. COMPARISON: None. TECHNIQUE: Grayscale imaging was performed. FINDINGS: LIVER: Measures 20.9 cm in length. Normal echogenicity of the liver parenchyma. No mass. No intrahepatic bile duct dilatation. GALLBLADDER: There are multiple gallstones. The gallbladder is partially contracted. There is mild wall thickening . No pericholecystic fluid. The sonographic Bennett's sign is negative. COMMON BILE DUCT: Measures 4.5 mm. No stones. No dilatation. PANCREAS: Unremarkable as visualized. No mass. No ductal dilatation. RIGHT KIDNEY: Measures 11.0 cm in length. Normal echogenicity. No calculus, mass, or hydronephrosis. AORTA: No aneurysmal dilatation. IVC: Unremarkable. OTHER FINDINGS: None . IMPRESSION: Mild hepatomegaly. Diffuse increased echogenicity in the liver may reflect hepatic steatosis however parenchymal infectious/ inflammatory etiologies cannot be entirely excluded. Clinical and laboratory correlation is advised. Cholelithiasis. Mild gallbladder wall thickening may be related to underdistention or inflammation. Follow-up is advised. Medical Decision Making Medical Decision Making: Differential Dx: Gastritis v.s. Gallbladder disease plan: -- ekg -- chem labs -- blood work -- Maalox -- pepcid -- zofran -- IV fluids -- abdomen XR and US -- UA Reassess: Pt is feeling much better. Lard Maker was used to further explain pt pathology. Pt is instructed to f/u with PMD. Disposition Counseled Patient/Family Regarding: Studies Performed, Diagnosis, Need For Followup, Rx Given - Disposition Referrals: Chong Lozano MD [Staff Provider] - [facility] [Outside] Disposition: HOME/ ROUTINE Disposition Time: 16:51 Condition: STABLE Prescriptions: Famotidine [Pepcid] 1 tab PO BID #30 tab Polyethylene Glycol 3350 [Miralax] 17 gm PO DAILY PRN #170 gm PRN Reason: Constipation Instructions: Constipation, Adult (DC), Gastritis (DC), Gallstones (DC) Forms: [employer] (Finnish) - POA Present On Arrival: None - Clinical Impression Clinical Impression: Constipation, Gastritis, Gallstones - Scribe Statement The provider has reviewed the documentation as recorded by the Scribe Estefany Peraza Provider Attestation: All medical record entries made by the Scribe were at my direction and personally dictated by me. I have reviewed the chart and agree that the record accurately reflects my personal performance of the history, physical exam, medical decision making, and the department course for this patient. I have also personally directed, reviewed, and agree with the discharge instructions and disposition.
[2018-08-08 13:34] LABS: BASO # 0.1 K/uL (0.0-0.2); BASO % 0.6 % (0.0-2.0); EOS # 0.2 K/uL (0.0-0.7); EOS % 2.4 % (0.0-4.0); LYMPH # 1.6 K/uL (1.0-4.3); LYMPH % 17.4 % (20.0-40.0); MEAN CELL VOLUME 77.4 fL (81.0-99.0); MEAN CORPUSCULAR HEMOGLOBIN 24.9 pg (27.0-31.0); MEAN CORPUSCULAR HGB CONC 32.1 g/dL (33.0-37.0); MEAN PLATELET VOLUME 8.8 fL (7.2-11.7); MONO # 0.5 K/uL (0.0-0.8); MONO % 4.9 % (0.0-10.0); NEUT % 74.7 % (50.0-75.0); RBC 4.95 Mil/uL (3.80-5.20); RED CELL DISTRIBUTION WIDTH 16.4 % (11.5-14.5); WHITE BLOOD COUNT 9.4 K/uL (4.8-10.8)
[2018-08-08 13:38] LABS: HEMOGLOBIN 12.3 g/dL (11.0-16.0)
[2018-08-08] MEDS ORDERED: Aluminum Hydroxide/Magnesium Hydroxide Susp (30 mL) PO STA (13:42)
[2018-08-08] MEDS ORDERED: Sodium Chloride 0.9% 1,000 ML IV ONE (13:42)
[2018-08-08 14:04] LABS: ALB/GLOB RATIO 1.2 (1.0-2.1); ALBUMIN 4.2 g/dL (3.5-5.0); ALT/SGPT 282 U/L (9-52); AST/SGOT 154 U/L (14-36); BLOOD UREA NITROGEN 11 mg/dL (7-17); CALCIUM 8.8 mg/dl (8.6-10.4); GFR NON-AFRICAN AMERICAN > 60; LIPASE 60 U/L (23-300)
[2018-08-08] MEDS ORDERED: Aluminum Hydroxide/Magnesium Hydroxide Susp (30 mL) ONE (14:26)
[2018-08-08] MEDS ORDERED: Sodium Chloride 0.9% 1,000 ML ONE (14:26)
--- NOTE | 2018-08-08 14:48 | RAD ---
Date of service: 08/08/2018 HISTORY: abd pain COMPARISON: None available. FINDINGS: BOWEL: There is moderate amount of stool in the ascending colon. There are gas-filled small bowel loops in the left abdomen. No evidence for bowel obstruction. BONES: Normal. OTHER FINDINGS: None. IMPRESSION: Constipation. No evidence for bowel obstruction.
--- NOTE | 2018-08-08 14:53 | US ---
Date of service: 08/08/2018 HISTORY: abd pain COMPARISON: None. TECHNIQUE: Grayscale imaging was performed. FINDINGS: LIVER: Measures 20.9 cm in length. Normal echogenicity of the liver parenchyma. No mass. No intrahepatic bile duct dilatation. GALLBLADDER: There are multiple gallstones. The gallbladder is partially contracted. There is mild wall thickening . No pericholecystic fluid. The sonographic Bennett's sign is negative. COMMON BILE DUCT: Measures 4.5 mm. No stones. No dilatation. PANCREAS: Unremarkable as visualized. No mass. No ductal dilatation. RIGHT KIDNEY: Measures 11.0 cm in length. Normal echogenicity. No calculus, mass, or hydronephrosis. AORTA: No aneurysmal dilatation. IVC: Unremarkable. OTHER FINDINGS: None . IMPRESSION: Mild hepatomegaly. Diffuse increased echogenicity in the liver may reflect hepatic steatosis however parenchymal infectious/ inflammatory etiologies cannot be entirely excluded. Clinical and laboratory correlation is advised. Cholelithiasis. Mild gallbladder wall thickening may be related to underdistention or inflammation. Follow-up is advised.
[2018-08-08 16:26] LABS: SQUAMOUS EPITHIAL 1 /hpf (0-5); URINE BACTERIA RARE (<OCC); URINE BILIRUBIN NEGATIVE (NEGATIVE); URINE BLOOD 3+ (NEGATIVE); URINE CLARITY Clear (Clear); URINE COLOR Yellow (YELLOW); URINE GLUCOSE (UA) NORMAL (Normal); URINE LEUKOCYTE ESTERASE 2+ Leu/uL (Negative); URINE PROTEIN NEGATIVE (NEGATIVE)
[2018-08-08 17:01] VITALS: BP 106/73; PULSE 56; RESP 20; TEMP 97.6
[2018-08-08 17:06] VITALS: O2SAT 100
--- NOTE | 2018-08-10 15:03 | CARD ---
APPROVED REPORT Date of service: 08/08/2018 EKG Measurement Heart [id number] SC [id number] [id number] <Conclusion> Sinus bradycardia Otherwise normal ECG
== END 2018-08-08 17:19 | disposition home or self-care (01) ==
LOC: C.ER 12:37
DX: K59.00 Constipation, unspecified (principal); K29.70 Gastritis, unspecified, without bleeding; K80.20 Calculus of gallbladder without cholecystitis without obstruction
CPT/HCPCS: 74018; 76705; 80053; 81001; 83690; 85025; 93005; 96361; 96374; 96375; 99285; J2405; J7030

== ENCOUNTER 2018-08-14 05:48 | Emergency (ER) | payer MEDICAID ==
[2018-08-14 05:48] VITALS: BMI 36.0
[2018-08-14 05:56] VITALS: O2SAT 100
--- NOTE | 2018-08-14 06:27 | C.PDOC ---
History Of Present Illness 33 year old female presents ti the ED c/o RUQ abdominal pain. Patient was seen in the ED on 08/08/18 for same presentation, at that time patient was told she had gallstones. Patient is 5-6 weeks post . Patient denies fever, chills, nausea, vomit, diarrhea, rash, recent travel, sick contacts. Time Seen by Provider: 08/14/18 06:27 Chief Complaint (Nursing): Abdominal Pain History Per: Patient History/Exam Limitations: no limitations Onset/Duration Of Symptoms: Days Current Symptoms Are (Timing): Still Present Context: Other Severity: Moderate Pain Scale Rating Of: 4 Location Of Pain/Discomfort: RUQ, Epigastric Quality Of Discomfort: Sharp, Cramping Associated Symptoms: denies: Nausea, Vomiting, Diarrhea, Urinary Symptoms Exacerbating Factors: None Alleviating Factors: None Last Bowel Movement: Yesterday Recent travel outside of the [place]: No Additional History Per: Patient Abnormal Vaginal Bleeding: No Past Medical History Reviewed: Historical Data, Nursing Documentation, Vital Signs Vital Signs: Last Vital Signs Temp 97.7 F 08/14/18 05:55 Pulse 66 08/14/18 05:55 Resp 22 08/14/18 05:55 BP 138/92 H 08/14/18 05:55 Pulse Ox 100 08/14/18 05:55 - Medical History PMH: No Chronic Diseases Surgical History: No Surg Hx - [facility] Procedures ARTIF RUPT MEMBRANES NEC (08/19/14) DELIVERY OF PRODUCTS OF CONCEPTION, EXTERNAL APPROACH (07/31/15) MANUAL ASSIST DELIV NEC (08/19/14) REPAIR FEMALE PERINEUM, EXTERNAL APPROACH (07/31/15) REPAIR OB LACERATION NEC (08/19/14) Family History: States: Unknown Family Hx - Social History Hx Tobacco Use: No Hx Alcohol Use: No Hx Substance Use: No - Immunization History Hx Tetanus Toxoid Vaccination: No Hx Influenza Vaccination: No Hx Pneumococcal Vaccination: No Review Of Systems Constitutional: Negative for: Fever, Chills Cardiovascular: Negative for: Chest Pain Respiratory: Negative for: Shortness of Breath Gastrointestinal: Positive for: Abdominal Pain. Negative for: Nausea, Vomiting, Diarrhea Genitourinary: Negative for: Dysuria, Hematuria, Vaginal Discharge, Vaginal Bleeding Musculoskeletal: Negative for: Back Pain Skin: Negative for: Rash Neurological: Negative for: Weakness, Numbness Psych: Positive for: Anxiety Physical Exam - Physical Exam Appears: Non-toxic Skin: Warm, Dry Head: Normacephalic Eye(s): bilateral: Normal Inspection Oral Mucosa: Moist Neck: Supple Chest: Symmetrical Cardiovascular: Rhythm Regular Respiratory: No Rales, No Rhonchi, No Wheezing Gastrointestinal/Abdominal: Bowel Sounds (tympanic to percussion), Soft, Tenderness (RUQ), Distention, No Guarding, No Rebound Back: Normal Inspection Extremity: Normal ROM Extremity: Bilateral: Atraumatic, Normal Color And Temperature, Normal ROM Neurological/Psych: Oriented x3, Normal Speech, Normal Cognition Gait: Steady ED Course And Treatment ECG: Interpreted By Me, Viewed By Me ECG Rhythm: Sinus Rhythm (54), Nonspecific Changes O2 Sat by Pulse Oximetry: 100 (ON RA) Pulse Ox Interpretation: Normal Progress Note: Plan: - Labs. - Pepcid 20 mg IVP. - IV fluids. - UA Disposition Counseled Patient/Family Regarding: Studies Performed, Diagnosis - Disposition Disposition Time: 06:27 Condition: FAIR Forms: [employer] (Macedonian) - Clinical Impression Clinical Impression: Abdominal pain - Scribe Statement The provider has reviewed the documentation as recorded by the Scribe Jasmeet Steinberg All medical record entries made by the Scribe were at my direction and personally dictated by me. I have reviewed the chart and agree that the record accurately reflects my personal performance of the history, physical exam, medical decision making, and the department course for this patient. I have also personally directed, reviewed, and agree with the discharge instructions and disposition. Physician Patient Turnover Patient Signed Over To: Maria C Cabral Handoff Comments: pending labs, re-eval and disposition
[2018-08-14] MEDS ORDERED: Sodium Chloride 0.9% 1,000 ML IV ONE (06:28)
[2018-08-14] MEDS ORDERED: Sodium Chloride 0.9% 1,000 ML ONE (06:40)
[2018-08-14 06:48] LABS: BASO # 0.1 K/uL (0.0-0.2); BASO % 0.7 % (0.0-2.0); EOS # 0.2 K/uL (0.0-0.7); EOS % 1.9 % (0.0-4.0); HEMOGLOBIN 12.8 g/dL (11.0-16.0); LYMPH # 2.2 K/uL (1.0-4.3); LYMPH % 27.3 % (20.0-40.0); MEAN CELL VOLUME 78.1 fL (81.0-99.0); MEAN CORPUSCULAR HEMOGLOBIN 24.9 pg (27.0-31.0); MEAN CORPUSCULAR HGB CONC 31.9 g/dL (33.0-37.0); MEAN PLATELET VOLUME 8.8 fL (7.2-11.7); MONO # 0.6 K/uL (0.0-0.8); MONO % 8.1 % (0.0-10.0); NEUT # 4.9 K/uL (1.8-7.0); NRBC % 0.1 % (0.0-2.0); RBC 5.16 Mil/uL (3.80-5.20); RED CELL DISTRIBUTION WIDTH 16.6 % (11.5-14.5); WHITE BLOOD COUNT 7.9 K/uL (4.8-10.8)
[2018-08-14 07:01] LABS: ALB/GLOB RATIO 1.4 (1.0-2.1); ALBUMIN 4.5 g/dL (3.5-5.0); ALT/SGPT 232 U/L (9-52); AST/SGOT 298 U/L (14-36); BLOOD UREA NITROGEN 14 mg/dL (7-17); CALCIUM 8.8 mg/dl (8.6-10.4); GFR NON-AFRICAN AMERICAN > 60; LIPASE 102 U/L (23-300)
[2018-08-14 08:11] LABS: SQUAMOUS EPITHIAL 1 /hpf (0-5); URINE BACTERIA RARE (<OCC); URINE BILIRUBIN NEGATIVE (NEGATIVE); URINE BLOOD 1+ (NEGATIVE); URINE CLARITY Clear (Clear); URINE COLOR Yellow (YELLOW); URINE GLUCOSE (UA) NORMAL (Normal); URINE LEUKOCYTE ESTERASE NEG Leu/uL (Negative); URINE PROTEIN NEGATIVE (NEGATIVE); URINE UROBILINOGEN NORMAL mg/dL (0.2-1.0)
--- NOTE | 2018-08-14 09:43 | US ---
Date of service: 08/14/2018 HISTORY: Abdominal pain ro acute mickie COMPARISON: None. TECHNIQUE: Sonographic evaluation of the right upper quadrant of the abdomen. FINDINGS: LIVER: Measures 21.4 cm in length. There is diffuse increased echogenicity of the liver parenchyma. No mass. No intrahepatic bile duct dilatation. GALLBLADDER: Again seen are multiple gall stones and mild pericholecystic fluid. The gallbladder is partially contracted. The sonographic Bennett's sign is positive. COMMON BILE DUCT: Measures 3.8 mm. No stones. No dilatation. PANCREAS: Unremarkable as visualized. No mass. No ductal dilatation. RIGHT KIDNEY: Measures 12.4 cm in length. Normal echogenicity. No calculus, mass, or hydronephrosis. AORTA: No aneurysmal dilatation. IVC: Unremarkable. OTHER FINDINGS: None . IMPRESSION: Mild hepatomegaly. Diffuse increased echogenicity in the liver may reflect hepatic steatosis however parenchymal infectious/ inflammatory etiologies cannot be entirely excluded. Clinical and laboratory correlation is advised. The gallbladder is partially contracted. Multiple gallstones and positive sonographic Bennett's sign. Findings may represent acute calculus cholecystitis in the appropriate clinical setting
[2018-08-14 10:07] VITALS: BP 132/88; PULSE 70; RESP 18; TEMP 98.1
--- NOTE | 2018-08-14 17:12 | CARD ---
APPROVED REPORT Date of service: 08/14/2018 EKG Measurement Heart [id number] [place] 142P74 [id number] <Conclusion> Sinus bradycardia Otherwise normal ECG
== END 2018-08-14 09:58 | disposition home or self-care (01) ==
LOC: C.ER 05:48
DX: K80.70 Calculus of gallbladder and bile duct without cholecystitis without obstruction (principal); R10.11 Right upper quadrant pain; R74.8 Abnormal levels of other serum enzymes
CPT/HCPCS: 76705; 80053; 81001; 83690; 85025; 85610; 85730; 93005; 96361; 96374; 99285; J7030

== ENCOUNTER 2018-09-03 02:21 | Emergency (ER) | payer MEDICAID ==
[2018-09-03 02:55] VITALS: BMI 31.6
[2018-09-03 03:09] VITALS: RESP 18
[2018-09-03] MEDS ORDERED: Sodium Chloride 0.9% 500 ML IV ONE (03:09)
[2018-09-03] MEDS ORDERED: Aluminum Hydroxide/Magnesium Hydroxide Susp (30 mL) PO STA (03:09)
[2018-09-03 03:23] LABS: SQUAMOUS EPITHIAL 2 /hpf (0-5); URINE BILIRUBIN NEGATIVE (NEGATIVE); URINE BLOOD 3+ (NEGATIVE); URINE CLARITY Hazy (Clear); URINE COLOR Red (YELLOW); URINE GLUCOSE (UA) NORMAL (Normal); URINE LEUKOCYTE ESTERASE TRACE Leu/uL (Negative); URINE PROTEIN 2+ mg/dL (NEGATIVE); URINE UROBILINOGEN NORMAL mg/dL (0.2-1.0); WBC CLUMPS MANY /hpf
[2018-09-03 03:32] LABS: BASO # 0.1 K/uL (0.0-0.2); BASO % 0.5 % (0.0-2.0); EOS # 0.1 K/uL (0.0-0.7); EOS % 0.7 % (0.0-4.0); HEMOGLOBIN 13.6 g/dL (11.0-16.0); LYMPH # 1.7 K/uL (1.0-4.3); LYMPH % 14.1 % (20.0-40.0); MEAN CELL VOLUME 76.8 fL (81.0-99.0); MEAN CORPUSCULAR HEMOGLOBIN 25.2 pg (27.0-31.0); MEAN CORPUSCULAR HGB CONC 32.8 g/dL (33.0-37.0); MEAN PLATELET VOLUME 8.5 fL (7.2-11.7); MONO # 0.8 K/uL (0.0-0.8); MONO % 6.3 % (0.0-10.0); NEUT # 9.4 K/uL (1.8-7.0); NEUT % 78.4 % (50.0-75.0); RBC 5.42 Mil/uL (3.80-5.20); RED CELL DISTRIBUTION WIDTH 17.4 % (11.5-14.5); WHITE BLOOD COUNT 11.9 K/uL (4.8-10.8)
[2018-09-03] MEDS ORDERED: Aluminum Hydroxide/Magnesium Hydroxide Susp (30 mL) ONE (03:35)
[2018-09-03 03:56] LABS: ALB/GLOB RATIO 1.2 (1.0-2.1); ALT/SGPT 112 U/L (9-52); AST/SGOT 243 U/L (14-36); BLOOD UREA NITROGEN 16 mg/dL (7-17); CALCIUM 8.8 mg/dl (8.6-10.4); GFR NON-AFRICAN AMERICAN > 60; LIPASE 94 U/L (23-300)
--- NOTE | 2018-09-03 04:49 | C.PDOC ---
History Of Present Illness 33 year old female presents to the ER via EMS for a complaint of epigastric pain since yesterday that has progressively worsened. Patient states she feels bloated, she was seen here last month and diagnosed with gallstones but has not yet followed up. Denies vomiting, diarrhea, constipation, fever, or urinary symptoms. Time Seen by Provider: 09/03/18 03:07 Chief Complaint (Nursing): Abdominal Pain History Per: Patient History/Exam Limitations: no limitations Onset/Duration Of Symptoms: Days (Yesterday) Current Symptoms Are (Timing): Still Present Location Of Pain/Discomfort: Epigastric Radiation Of Pain To:: None Quality Of Discomfort: Other (Bloated) Associated Symptoms: denies: Fever, Vomiting, Diarrhea, Constipation, Urinary Symptoms Exacerbating Factors: None Alleviating Factors: None Recent travel outside of the [place]: No Abnormal Vaginal Bleeding: No Past Medical History Reviewed: Historical Data, Nursing Documentation, Vital Signs Vital Signs: Last Vital Signs Temp 98.7 F 09/03/18 02:54 Pulse 76 09/03/18 02:54 Resp 18 09/03/18 02:54 BP 125/85 09/03/18 02:54 Pulse Ox 100 09/03/18 02:54 - Medical History PMH: Gall Bladder Disease (GALLSTONES) - [facility] Procedures ARTIF RUPT MEMBRANES NEC (08/19/14) DELIVERY OF PRODUCTS OF CONCEPTION, EXTERNAL APPROACH (07/31/15) MANUAL ASSIST DELIV NEC (08/19/14) REPAIR FEMALE PERINEUM, EXTERNAL APPROACH (07/31/15) REPAIR OB LACERATION NEC (08/19/14) Family History: States: Unknown Family Hx - Social History Hx Tobacco Use: No Hx Alcohol Use: No Hx Substance Use: No - Immunization History Hx Tetanus Toxoid Vaccination: No Hx Influenza Vaccination: No Hx Pneumococcal Vaccination: No Review Of Systems Constitutional: Negative for: Fever, Chills Cardiovascular: Negative for: Chest Pain, Palpitations Respiratory: Negative for: Cough, Shortness of Breath Gastrointestinal: Positive for: Abdominal Pain. Negative for: Vomiting, Diarrhea, Constipation Genitourinary: Negative for: Dysuria, Frequency, Hematuria Physical Exam - Physical Exam Appears: Non-toxic, Other (Obese) Skin: Normal Color, Warm, Dry Head: Atraumatic, Normacephalic Eye(s): bilateral: Normal Inspection Oral Mucosa: Moist Neck: Normal, Supple Chest: Symmetrical, No Tenderness Cardiovascular: Rhythm Regular Respiratory: Normal Breath Sounds, No Rales, No Rhonchi, No Wheezing Gastrointestinal/Abdominal: Soft, Tenderness (Epigastric, Diffuse), No Guarding, No Rebound Back: No CVA Tenderness Pelvic: Other (Refused) Neurological/Psych: Oriented x3, Normal Speech ED Course And Treatment - Laboratory Results Result Diagrams: 09/03/18 03:29 09/03/18 03:29 O2 Sat by Pulse Oximetry: 100 (Room air) Pulse Ox Interpretation: Normal Progress Note: Blood work ordered, results were negative. Attempted to place IV line but there was difficulty getting a line, PO lidocaine, maalox, pepcid, zofran, and toradol IM administered. While in ED pt vomited a large amount of food particles and reported feeling better afterwards. 5 am- On reevaluation, patient is resting comfortably in no acute distress, tolerating PO, vitals are stable, will discharge home with Rx and instructions to follow up with PMD. Reevaluation Time: 05:00 Reassessment Condition: Improved Disposition Counseled Patient/Family Regarding: Diagnosis, Need For Followup, Rx Given - Disposition Disposition: HOME/ ROUTINE Disposition Time: 05:00 Condition: STABLE Additional Instructions: Increase PO fluids Take medications as directed Follow up in clinic or with PMD Return to ER if worse Prescriptions: Nitrofurantoin Macrocrystals [Macrobid] 1 cap PO BID #14 cap traMADol [Ultram] 50 mg PO TID #15 tab Instructions: Acute Abdomen (Belly Pain), Adult (DC), Urinary Tract Infection, Adult (DC) Forms: [employer] (Kazakh) - Clinical Impression Clinical Impression: Abdominal pain, UTI (urinary tract infection) - PA / WINDER OPERATOR / Resident Statement MD/DO has reviewed & agrees with the documentation as recorded. - Scribe Statement The provider has reviewed the documentation as recorded by the Andreinaibjose Ritchie All medical record entries made by the Andreinaibjose were at my direction and personally dictated by me. I have reviewed the chart and agree that the record accurately reflects my personal performance of the history, physical exam, medical decision making, and the department course for this patient. I have also personally directed, reviewed, and agree with the discharge instructions and disposition.
[2018-09-03 06:08] VITALS: BP 131/79; PULSE 82; TEMP 98.1; O2SAT 99
== END 2018-09-03 06:08 | disposition home or self-care (01) ==
LOC: C.ER 02:21
DX: N39.0 Urinary tract infection, site not specified (principal); R10.13 Epigastric pain
CPT/HCPCS: 36415; 80053; 81001; 83690; 85025; 96372; 99284; J1885

== ENCOUNTER 2018-09-04 20:19 | Emergency (ER) | payer MEDICAID ==
[2018-09-04 20:19] VITALS: BMI 31.6
[2018-09-04 21:12] VITALS: TEMP 98.2
[2018-09-04] MEDS ORDERED: Alum-Mag Hydrox-Simethicone Susp (30 mL) PO STA (22:57)
--- NOTE | 2018-09-04 23:02 | C.PDOC ---
History Of Present Illness 33 year old female with PMHx of gallstones presents to the ED c/o epigastric and RUQ abdominal pain for the past 3 days. Patient was seen in the ED twice for the same presentation. Patient taking some medication at home with no relief. Patient denies fever, chills, nausea, vomit, diarrhea, dysuria, hematuria. Time Seen by Provider: 09/04/18 22:20 Chief Complaint (Nursing): Abdominal Pain History Per: Patient History/Exam Limitations: no limitations Onset/Duration Of Symptoms: Days Current Symptoms Are (Timing): Still Present Location Of Pain/Discomfort: RUQ, Epigastric Quality Of Discomfort: "Pain" Associated Symptoms: denies: Nausea, Vomiting, Diarrhea, Urinary Symptoms Recent travel outside of the [place]: No Additional History Per: Patient Abnormal Vaginal Bleeding: No Past Medical History Reviewed: Historical Data, Nursing Documentation, Vital Signs Vital Signs: Last Vital Signs Temp 98.2 F 09/04/18 21:02 Pulse 69 09/04/18 21:02 Resp 18 09/04/18 21:02 BP 137/82 09/04/18 21:02 Pulse Ox 100 09/04/18 21:02 - Medical History PMH: Gall Bladder Disease (GALLSTONES) Surgical History: No Surg Hx - [facility] Procedures ARTIF RUPT MEMBRANES NEC (08/19/14) DELIVERY OF PRODUCTS OF CONCEPTION, EXTERNAL APPROACH (07/31/15) MANUAL ASSIST DELIV NEC (08/19/14) REPAIR FEMALE PERINEUM, EXTERNAL APPROACH (07/31/15) REPAIR OB LACERATION NEC (08/19/14) Family History: States: Unknown Family Hx - Social History Hx Tobacco Use: No Hx Alcohol Use: No Hx Substance Use: No - Immunization History Hx Tetanus Toxoid Vaccination: No Hx Influenza Vaccination: No Hx Pneumococcal Vaccination: No Review Of Systems Constitutional: Negative for: Fever, Chills Cardiovascular: Negative for: Chest Pain Respiratory: Negative for: Shortness of Breath Gastrointestinal: Positive for: Abdominal Pain. Negative for: Nausea, Vomiting, Diarrhea Genitourinary: Negative for: Dysuria, Hematuria Musculoskeletal: Negative for: Back Pain Skin: Negative for: Rash Neurological: Negative for: Weakness, Numbness Physical Exam - Physical Exam Appears: Non-toxic, No Acute Distress, Other (obese) Skin: Normal Color, Warm, Dry Head: Atraumatic, Normacephalic Eye(s): bilateral: Normal Inspection Oral Mucosa: Moist Neck: Normal ROM, Supple Chest: Symmetrical Cardiovascular: Rhythm Regular Respiratory: Normal Breath Sounds, No Rales, No Rhonchi, No Wheezing Gastrointestinal/Abdominal: Soft, Tenderness (RUQ and mid epigastric), No Guarding, No Rebound Back: No CVA Tenderness Extremity: Normal ROM, No Tenderness, No Swelling Neurological/Psych: Oriented x3, Normal Speech, Normal Cognition Gait: Steady ED Course And Treatment O2 Sat by Pulse Oximetry: 100 (ON RA) Pulse Ox Interpretation: Normal Progress Note: Plan: - Lidocaine 15 ml PO. - Maalox 30 ml PO. Patient was seen in the ED on 09/03 lasb were done then. Patient states she has appointment with general surgeon and will follow up accordingly. Disposition Counseled Patient/Family Regarding: Diagnosis, Need For Followup, Rx Given - Disposition Disposition: HOME/ ROUTINE Disposition Time: 23:45 Condition: STABLE Additional Instructions: Keep appointment as scheduled with general surgeon Take all meds as prescribed Avoid spiciy , greasy foods or caffeine Return to ER if worse Prescriptions: Aluminum Hydroxide/Magnesium H [Maalox 30 ml] 30 ml PO Q6 #100 ml Ranitidine HCl [Zantac] 150 mg PO BID #20 tablet Instructions: Gastritis (DC) Forms: [employer] (Indian) - Clinical Impression Clinical Impression: Gastritis - PA / MANAGER PROCESS IMPROVEMENT / Resident Statement MD/DO has reviewed & agrees with the documentation as recorded. - Scribe Statement The provider has reviewed the documentation as recorded by the Scribe Jasmeet Steinberg All medical record entries made by the Scribe were at my direction and personally dictated by me. I have reviewed the chart and agree that the record accurately reflects my personal performance of the history, physical exam, medical decision making, and the department course for this patient. I have also personally directed, reviewed, and agree with the discharge instructions and disposition.
[2018-09-04] MEDS ORDERED: Aluminum Hydroxide/Magnesium Hydroxide Susp (30 mL) ONE (23:09)
[2018-09-04 23:54] VITALS: BP 130/70; PULSE 70; RESP 14
[2018-09-05 01:36] VITALS: O2SAT 100
== END 2018-09-04 23:54 | disposition home or self-care (01) ==
LOC: C.ER 20:19
DX: K29.70 Gastritis, unspecified, without bleeding (principal)

== ENCOUNTER 2018-09-06 21:49 | Emergency (ER) | payer MEDICAID ==
[2018-09-06 21:49] VITALS: BMI 31.6
[2018-09-06 22:03] VITALS: RESP 16; O2SAT 100
[2018-09-06] MEDS ORDERED: Sodium Chloride 0.9% 1,000 ML IV ONE (22:15)
--- NOTE | 2018-09-06 22:44 | C.PDOC ---
History Of Present Illness 33 y/o female presents to the ED with upper abdominal pain that began around 6:00PM tonight. Patient reports known hx of gall bladder stones in the past. She follows up with GI specialist Dr. Hickman. Pain is described as sudden onset, associated with nausea and vomiting. Otherwise patient denies any diarrhea, fever, chills, chest pain, or difficulty breathing. Time Seen by Provider: 09/06/18 22:09 Chief Complaint (Nursing): Abdominal Pain History Per: Patient History/Exam Limitations: no limitations Onset/Duration Of Symptoms: Hrs Current Symptoms Are (Timing): Still Present Location Of Pain/Discomfort: RUQ, Epigastric Radiation Of Pain To:: None Quality Of Discomfort: "Pain" Associated Symptoms: Nausea, Vomiting Abnormal Vaginal Bleeding: No Past Medical History Reviewed: Historical Data, Nursing Documentation, Vital Signs Vital Signs: Last Vital Signs Temp 98 F 09/06/18 21:58 Pulse 84 09/06/18 21:58 Resp 16 09/06/18 21:58 BP 129/89 09/06/18 21:58 Pulse Ox 100 09/06/18 21:58 - Medical History PMH: Gall Bladder Disease (GALLSTONES) - [facility] Procedures ARTIF RUPT MEMBRANES NEC (08/19/14) DELIVERY OF PRODUCTS OF CONCEPTION, EXTERNAL APPROACH (07/31/15) MANUAL ASSIST DELIV NEC (08/19/14) REPAIR FEMALE PERINEUM, EXTERNAL APPROACH (07/31/15) REPAIR OB LACERATION NEC (08/19/14) Family History: States: Unknown Family Hx - Social History Hx Tobacco Use: No Hx Alcohol Use: No Hx Substance Use: No - Immunization History Hx Tetanus Toxoid Vaccination: No Hx Influenza Vaccination: No Hx Pneumococcal Vaccination: No Review Of Systems Constitutional: Negative for: Fever, Chills Cardiovascular: Negative for: Chest Pain Respiratory: Negative for: Shortness of Breath Gastrointestinal: Positive for: Nausea, Vomiting, Abdominal Pain. Negative for: Diarrhea, Constipation, Hematochezia Genitourinary: Negative for: Dysuria, Frequency Neurological: Negative for: Weakness, Numbness Physical Exam - Physical Exam Appears: Non-toxic, In Acute Distress (mild distress due to pain) Skin: Normal Color, Warm, Dry Head: Atraumatic, Normacephalic Eye(s): bilateral: Normal Inspection, PERRL, EOMI Oral Mucosa: Moist Neck: Normal ROM Chest: Symmetrical Cardiovascular: Rhythm Regular, No Murmur Respiratory: Normal Breath Sounds, No Accessory Muscle Use Gastrointestinal/Abdominal: Soft, Tenderness (to the epigastrium, RLQ, and RUQ), No Guarding, No Rebound Back: No CVA Tenderness, No Vertebral Tenderness Extremity: Bilateral: Atraumatic, Normal Color And Temperature Pulses: Left Dorsalis Pedis: Normal, Right Dorsalis Pedis: Normal Neurological/Psych: Oriented x3, Normal Speech ED Course And Treatment - Laboratory Results Result Diagrams: 09/06/18 22:59 09/06/18 23:48 O2 Sat by Pulse Oximetry: 100 (RA) Pulse Ox Interpretation: Normal - CT Scan/US Abdominal US Other Rad Studies (CT/US): Read By Radiologist, Radiology Report Reviewed CT/US Interpretation: Name:FATMATA VILLALTA Exam Date:Sep 07, 2018 12:11:14 AM EST. Modality Type:SD\\US\\MA\\SR. Description: US - ABDOMINAL COMPLETE. Gender:F Laterality:Not applicable. :87 Referring Physician:MARIANNA SPIVEY. Ultrasound abdomen, complete. Indication: Right upper quadrant, right lower quadrant pain. Technique: Real-time ultrasound images were obtained. Findings: Liver is moderately enlarged mukesh suring 21.0 cm with hepatic steatosis. Trace amount of pericholecystic free fluid is noted. Cholelithiasis. Diffuse thickening of the gallbladder measuring 6.1 mm. Unremarkable pancreas as visualized. Unremarkable IVC as visualized. Mildly enlarged spleen measuring 13.5 cm. Unremarkable kidneys. Impression: Cholelithiasis. Diffuse thickening of the gallbladder which is probably secondary to underdistention or represent chronically diseased gallbladder. Trace amount of pericholecystic free fluid. Hepatosplenomegaly. . Electronically signed on Sep 07, 2018 1:30:24 AM EST by: Christine Green M.D., Certified by [facility], [facility], Neuroradiology Progress Note: Blood work and urine sent to the lab. IV fluids, 30 mg IV Toradol, and 20 mg IV Pepcid administered. Abdominal US ordered to rule out cholecystitis. Disposition Counseled Patient/Family Regarding: Diagnosis - Disposition Referrals: Raquel Hickman [Staff Provider] - Disposition: HOME/ ROUTINE Disposition Time: 02:04 Condition: STABLE Prescriptions: Dicyclomine [Bentyl] 10 mg PO QID #20 cap Instructions: Gallstones (DC) Forms: [employer] (Danish) - Clinical Impression Clinical Impression: Gallstones, Biliary colic - Scribe Statement The provider has reviewed the documentation as recorded by the Andreinaibe Melissa Heath Provider Attestation: All medical record entries made by the Andreinaibe were at my direction and personally dictated by me. I have reviewed the chart and agree that the record accurately reflects my personal performance of the history, physical exam, m edical decision making, and the department course for this patient. I have also personally directed, reviewed, and agree with the discharge instructions and disposition.
[2018-09-06 22:48] LABS: SQUAMOUS EPITHIAL 1 /hpf (0-5); URINE BILIRUBIN NEGATIVE (NEGATIVE); URINE BLOOD 1+ (NEGATIVE); URINE CLARITY Clear (Clear); URINE COLOR Yellow (YELLOW); URINE GLUCOSE (UA) NORMAL (Normal); URINE LEUKOCYTE ESTERASE NEG Leu/uL (Negative); URINE PROTEIN NEGATIVE (NEGATIVE)
[2018-09-06 23:02] LABS: BASO # 0.1 K/uL (0.0-0.2); LYMPH % 30.3 % (20.0-40.0); MEAN PLATELET VOLUME 8.7 fL (7.2-11.7); MONO # 0.6 K/uL (0.0-0.8)
[2018-09-06 23:08] LABS: BASO % 1.6 % (0.0-2.0); EOS # 0.3 K/uL (0.0-0.7); EOS % 3.4 % (0.0-4.0); HEMOGLOBIN 11.9 g/dL (11.0-16.0); LYMPH # 2.4 K/uL (1.0-4.3); MEAN CELL VOLUME 77.9 fL (81.0-99.0); MEAN CORPUSCULAR HEMOGLOBIN 25.3 pg (27.0-31.0); MEAN CORPUSCULAR HGB CONC 32.4 g/dL (33.0-37.0); NEUT # 4.4 K/uL (1.8-7.0); NEUT % 56.7 % (50.0-75.0); RBC 4.72 Mil/uL (3.80-5.20); WHITE BLOOD COUNT 7.8 K/uL (4.8-10.8)
[2018-09-07 00:34] LABS: ALB/GLOB RATIO 1.4 (1.0-2.1); ALBUMIN 4.1 g/dL (3.5-5.0); ALT/SGPT 520 U/L (9-52); AST/SGOT 257 U/L (14-36); BLOOD UREA NITROGEN 11 mg/dL (7-17); CALCIUM 8.7 mg/dl (8.6-10.4); GFR NON-AFRICAN AMERICAN > 60; LIPASE 72 U/L (23-300)
[2018-09-07 01:57] VITALS: BP 112/70; PULSE 64; TEMP 98.1
--- NOTE | 2018-09-07 09:59 | US ---
Abdominal ultrasound HISTORY: Abdominal pain. Comparison: 08/14/2018 Technique: Real-time sonography was performed through the abdomen. Findings: Liver: 21.1 centimeters in length. Diffuse increased echogenicity of the hepatic parenchymal cortex suggestive for fatty infiltration versus hepatic parenchymal disease. Clinical correlation. Gallbladder: Somewhat contracted. Cholelithiasis. Gallbladder wall thickening measuring up to 6 millimeters. Associated gallbladder wall edema. Trace pericholecystic fluid. Common bile duct measures 3.6 millimeters, within normal limits. Limited visualization of the pancreas. Mildly prominent spleen measuring 13.5 centimeters in length. Visualized aorta and IVC are preserved. Right kidney: 11.3 x 5.3 x 5.4 centimeters. No calculi or hydronephrosis. Left Kidney: 11.9 x 5.2 x 4.8 centimeters. No calculi or hydronephrosis. Impression: 1. Somewhat contracted gallbladder with associated cholelithiasis. Gallbladder wall thickening measuring up to 6 millimeters. Associated gallbladder wall edema. Trace pericholecystic fluid. These findings may represent an underlying cholecystitis possibly acute and or acute on chronic. Clinical correlation. Correlation with nuclear medicine study may be helpful if clinically indicated. 2. Prominent liver measuring 21.1 centimeters in length with associated increased echogenicity of the hepatic parenchymal cortex suggestive for fatty infiltration versus hepatic parenchymal disease. Clinical correlation. 3. Prominent spleen measuring up to 13.5 centimeters. 4. Limited visualization of the pancreas. A preliminary report was generated at 1:30 a.m. on 09/07/[address] Christine Green from [facility].
== END 2018-09-07 02:22 | disposition home or self-care (01) ==
LOC: C.ER 21:49
DX: K80.70 Calculus of gallbladder and bile duct without cholecystitis without obstruction (principal)
CPT/HCPCS: 76700; 80053; 81001; 83690; 84702; 85025; 96374; 96375; 99284; J1885; J7030